=== PATIENT | female | born 1975 | race Caucasian/White ===

== ENCOUNTER 2025-01-17 16:26 | Emergency (ER) | payer OTHER, SELFPAY ==
[2025-01-17 16:28] VITALS: BP 131/67
[2025-01-17 16:49] LABS: Hematocrit 37.6 % (37.0-47.0); Hemoglobin 13.0 g/dL (12.0-16.0); Mean Corp Hgb Conc. 34.6 g/dL (33.0-37.0); Mean Corpuscular Volume 96.9 fL (81.0-99.0); Nucleated Red Blood Cells % 0 %; Platelet Count 215 10^3/uL (130-400); Red Cell Dist. Width 12.2 % (11.5-14.5)
[2025-01-17 17:07] LABS: ALT (SGPT) 13 U/L (0-35); AST (SGOT) 19 U/L (14-36); Albumin 4.6 g/dl (3.5-5.0); Alkaline Phosphatase 40 U/L (38-126); Blood Urea Nitrogen 8 mg/dl (7-17); Calcium 9.7 mg/dl (8.4-10.2); Carbon Dioxide 24 mmol/L (22-30); Chloride 106 mmol/L (98-107); Glucose 114 mg/dl (70-99); Lipase 56 U/L (23-300); Potassium 4.6 mmol/L (3.5-5.1); Sodium 137 mmol/L (135-145); Total Protein 7.6 g/dl (6.3-8.2); eGFR > 60.00
[2025-01-17 18:46] VITALS: BMI 21.4
[2025-01-17 18:52] VITALS: BP 99/51
[2025-01-17 20:00] VITALS: BP 114/72
[2025-01-17] MEDS: NSS 1000 IV (20:01)
[2025-01-17] MEDS: REGLAN 10 MG IV (20:02)
[2025-01-17] MEDS: BENADRYL 25 MG IV (20:03)
[2025-01-17 20:23] LABS: HCG, Serum Qualitative Screen Negative
--- NOTE | 2025-01-17 20:34 | ED.GENMED ---
History of Present Illness
General
Chief Complaint: Abdominal Symptoms
Source: patient
Time Seen by Provider: 01/17/25 18:57
History of Present Illness
History of Present Illness:
49-year-old female presenting to the emergency department for evaluation of nausea and vomiting which began yesterday evening accompanied with loose stool yesterday but no stool abnormalities today, patient states anytime she goes to eat or drink
anything she still has the persistent vomiting. Patient states there is no pain associated with this and she denies any fevers. Of unknown relevance patient states that at the end of November she excellently fell causing injury to her left knee with
questionable cellulitis. She was treated with Augmentin and Flagyl for 10 days, completed this in early December but states she has had a skin abnormality since that time, followed up with orthopedics and was told she had 2 deep bone bruises, but
reports the cellulitis has since improved. Also in her history patient states that she started develop a rash to her bilateral axillary region and had a biopsy performed with inconclusive findings but thought to be related to eczema. There were
talks about starting the patient on another antibiotic versus antifungal medication which patient declined both and instead did a topical eczema cream which seemed to relieve the symptoms however she still notes the biopsy site may be was a little
bit more red today than previous but does note she is not having any fevers and no drainage from the affected area.
Past History
Past History
ED Past Medical History: None
ED Past Surgical History: Gynecological (LEEP)
Social History
Tobacco: Non-smoker
Alcohol: None
Drug: None
Personal:
Living: with family
Family History
Family History: Unable to obtain
Review of Systems
Review of Systems
All Other Systems: ROS reviewed and negative except as documented in HPI and ROS
Phy Exam
Physical Exam
Physical Exam:
GENERAL: Alert , in no apparent distress
EYE: clear conjunctiva b/l
HEAD: NCAT
ENT: o/p clr, mmm.
CARDIAC: Regular rate and rhythm .
LUNGS: Clear breath sounds bilaterally, no acute respiratory distress, no wheezes/rales/rhonchi
ABDOMEN: Soft, without focal tenderness, no r/g, no cvat
NEUROLOGICAL: Alert and oriented
SKIN: Warm and dry, skin intact.
MUSCULOSKELETAL: No edema, well perfused.
PSYCH: Normal and appropriate interaction.
Scores
Heart Failure Risk
Heart Failure Risk Score: Not Applicable
Heart Score for Chest Pain Patients
STEMI patient?: Not applicable
Withdrawal Assessment of Alcohol
Withdrawal Assessment Completed?: Not applicable
Course
Orders/Labs/Results
Orders:
Orders
01/17/25 16:40
CMP [Comprehensive Metabolic Panel] Urgent
Complete Blood Count/With Diff Urgent
HCG, Serum Qualitative Screen Urgent
Comment: ADD ON
Lipase Urgent
01/17/25 19:19
Add On- LAB Urgent
Tests Added?: hcg qual
0.9% Sodium Chloride 1000 ml [Nss] 1,000 ml IV BOLUS
Diphenhydramine [Benadryl] 25 mg IV NOW STA
Metoclopramide [Reglan] 10 mg IV NOW STA
Abnormal Lab Results
01/17/25
16:40
RBC 3.88 L 10^6/uL
(4.20-5.40)
MCH 33.5 H pg
(27.0-31.0)
Lymphocytes % 19.4 L %
(20.5-51.1)
Creatinine 0.4 L mg/dL
(0.6-1.0)
Glucose 114 H mg/dl
(70-99)
01/17/25 16:40
01/17/25 16:40
Vital Signs
Initial and Last Documented VS:
Initial Vital Signs
Temp Pulse Resp BP Pulse Ox
97.7 F 67 16 131/67 99
01/17/25 16:28 01/17/25 16:28 01/17/25 16:28 01/17/25 16:28 01/17/25 16:28
Last Documented Vital Signs
Temp Pulse Resp BP Pulse Ox
97.7 F 56 16 109/72 100
01/17/25 16:28 01/17/25 21:03 01/17/25 21:03 01/17/25 21:03 01/17/25 21:03
MDM/Problems Addressed
Differential Diagnosis Includes:
Gastroenteritis
GERD
Gastritis
Peptic ulcer disease
Foodborne illness
Dehydration
Electrolyte derangement
Less concern for an antibiotic associated infection given it has been well over 1 month since patient took these antibiotics
MDM/Problems Addressed:
49-year-old female presented to the ER for evaluation of nausea and vomiting. She does have secondary medical history but unclear as to if this is related. Patient overall well-appearing and in no acute distress. Abdominal exam reassuring. Labs
were initiated on arrival which are all reassuring. After completion of the exam patient did note she also has a headache which she believes is likely triggered from the nausea and vomiting. Will treat with Reglan and Benadryl as this will also
help with the patient's headache in addition to IV fluids. Will reassess following. Plan to discharge home.
*Pulse Oximetry
SaO2: 99
Oxygen Mode of Delivery: Room air
Patient hypoxic: no
*Critical Care Note
Total Time (30-74mins, 75-104mins- exclusive of procedures): Not Applicable
Patient Management
Escalation/DeEscalation of care consider admission/obs:
Patient reports significant relief of symptoms following IV medications and fluids. She was able to tolerate p.o. fluids here without any further vomiting. Feels comfortable being discharged home. Prescription for Zofran sent to pharmacy. Aware
of return precautions
ED Attending Note
-
Portions of this chart may have been created with voice recognition software.� Occasional wrong word or��sound alike� substitutions may have occurred due to the inherent limitations of voice recognition software.
Discharge Plan
Departure
Patient Disposition: Home (Routine Discharge)
Date of Disposition: 01/17/25
Time of Disposition: 21:09
Patient with high blood pressure during this ER visit?: No
Discharge Problem:
Nausea and vomiting
Instructions: Nausea and Vomiting, Adult (DC)
Prescriptions:
New
ondansetron 4 mg tablet,disintegrating
4 mg PO TIDPRN PRN (Reason: nausea/vomiting) Qty: 8 0RF
No Action
acetaminophen 500 mg Tablet
1,000 mg PO Q6H PRN (Reason: pain)
doxycycline monohydrate [Oracea] 40 mg Capsule,Ir - Delay Rel,Biphase
40 mg PO DAILY
Probiotic
1 tab PO DAILY
Vitamin D3
1 tab PO DAILY
zinc
1 tab PO DAILY
Referrals:
Mariana Driscoll MD [Family Provider, Internal Medicine]
Interventions
Interventions:
*Risk Screen - Suicide Last Done: 01/17/25 16:28
*General Assessment Last Done: 01/17/25 18:46
*Neglect/Abuse Screening Last Done: 01/17/25 16:28
*ED- Fall Risk Assessment Last Done: 01/17/25 18:46
*ED COVID-19 Vaccine History Last Done: 01/17/25 18:46
*Nursing Disposition Last Done: 01/17/25 21:30
HW-Bguxye-Eyycrwlbxl Assessment Last Done: 01/17/25 18:52
Discharge Date and Time
Discharge Date/Time: 01/17/25 21:40
Print Language: FRENCH
[2025-01-17 21:03] VITALS: BP 109/72
== END 2025-01-17 21:40 | disposition home or self-care (01) ==
LOC: EMR 16:26
PROVIDERS: Emergency Medicine; EMERGENCY PHYSICIAN Emergency Medicine; FAMILY PHYSICIAN Internal Medicine
DX: R11.2 Nausea with vomiting, unspecified (principal); R51.9 Headache, unspecified
CPT/HCPCS: 96374; 96375; 96361; 99284; 80053; 83690; 84703; 85025